=== PATIENT | female | born 1985 | race Two or more races ===

== ENCOUNTER 2017-02-17 21:26 | Outpatient (CLI) | payer OTHER ==
[2017-02-17 22:18] LABS: APPEARANCE,URINE SLIGHTLY-CLOUDY; BILIRUBIN,URINE NEGATIVE (NEGATIVE); GLUCOSE, URINE 50 mg/dL (NEGATIVE); KETONES,URINE TRACE mg/dL (NEGATIVE); LEUKOCYTE ESTERASE,URINE TRACE (NEGATIVE); NITRITE,URINE NEGATIVE (NEGATIVE); PROTEIN,URINE NEGATIVE (NEGATIVE); URINE SPECIFIC GRAVITY 1.029; UROBILINOGEN,URINE NEGATIVE mg/dL (<2.0)
[2017-02-17] MEDS ORDERED: RINGERS SOLUTION,LACTATED 1,000 ML IV PRN (22:38)
[2017-02-17 22:42] LABS: URINE BARBITURATES SCREEN NEGATIVE; URINE METHADONE SCREEN NEGATIVE; URINE OPIATES LOW NEGATIVE; URINE PHENCYCLIDINE SCREEN NEGATIVE
[2017-02-18] MEDS ORDERED: TERBUTALINE SULFATE INJ/PF 1 MG/1 ML SDV ONE (03:12)
[2017-02-18] MEDS ORDERED: TERBUTALINE SULFATE INJ/PF 1 MG/1 ML SDV SUBCUT ONE (03:52)
--- NOTE | 2017-02-18 05:39 | Non Stress Test Report ---
Non Stress Test Datetime Report Generated by CPN: 02/18/2017 05:38 DEMOGRAPHIC EGA NST: 38.2 INDICATION Indication for Study: Ordered by Provider VITAL SIGNS Temperature - NST: 98.3 Pulse - NST: 97 RESP - NST: 14 NBPSYS NST: 96 NBPDIA NST: 54 MONITORING Monitor Explained: Monitor Explained; Test Explained; Patient Verbalized Understanding Time on Monitor: 02/18/2017 03:02 Time off Monitor: 02/18/2017 05:05 NST Duration: 123 NST INTERVENTIONS NST Interventions: IV Fluids Physician Notified NST: Dr Matos BABY A: [id number] BABY A Movement : Present Contraction Frequency : irreg FHR Baseline : 145 Accelerations : 15X15 Decelerations : None Variability : Moderate 6-25bpm NST Review: Meets Criteria for Reactive NST NST Review and Verified By : Navin Pineda RN NST Results: Reactive NST REPORT Report Trigger: Send Report
== END 2017-02-18 05:31 | disposition home or self-care (01) ==
LOC: LC 21:26
PROVIDERS: ATTEND Student in an Organized Health Care Education/Training Program
PROC: 4A1HXCZ Monitoring of Products of Conception, Cardiac Rate, External Approach (ICD-10-PCS; principal; 2017-02-17)
DX: O47.1 False labor at or after 37 completed weeks of gestation (principal); Z3A.38 38 weeks gestation of pregnancy
CPT/HCPCS: 59025; 81005; 80307; J3105

== ENCOUNTER 2017-02-18 17:11 | Inpatient (IN) | payer OTHER ==
[~2017-02-18 17:11] MED LIST: DEXAMETHASONE SOD PHOSPHATE INJ 4 MG/1 ML VIAL ONE; GLYCOPYRROLATE INJ 0.4 MG/2 ML VIAL ONE; KETOROLAC TROMETHAMINE 60 MG/2 ML SDV ONE; METOCLOPRAMIDE HCL INJ/PF 10 MG/2 ML SDV ONE; ONDANSETRON HCL INJ/PF 4 MG/2 ML SDV ONE; PHENYLEPHRINE HCL INJ/PF 10 MG/1 ML SDV ONE
[2017-02-18 18:01] LABS: APPEARANCE,URINE SLIGHTLY-CLOUDY; BILIRUBIN,URINE NEGATIVE (NEGATIVE); GLUCOSE, URINE NEGATIVE (NEGATIVE); KETONES,URINE 20 mg/dL (NEGATIVE); LEUKOCYTE ESTERASE,URINE NEGATIVE (NEGATIVE); NITRITE,URINE NEGATIVE (NEGATIVE); PROTEIN,URINE NEGATIVE (NEGATIVE); URINE SPECIFIC GRAVITY 1.008; UROBILINOGEN,URINE NEGATIVE mg/dL (<2.0)
[2017-02-18 18:16] LABS: URINE BARBITURATES SCREEN NEGATIVE; URINE METHADONE SCREEN NEGATIVE; URINE OPIATES LOW NEGATIVE; URINE PHENCYCLIDINE SCREEN NEGATIVE
[2017-02-18 18:32] LABS: ABSOLUTE BASOPHILS # (AUTO) 0.1 10^3/uL (0.0-0.2); ABSOLUTE LYMPHOCYTES (AUTO) 1.5 10^3/uL (0.5-4.7); ABSOLUTE MONOCYTES (AUTO) 0.8 10^3/uL (0.1-1.4); BASOPHILS % (AUTO) 0.4 % (0-2); EOSINOPHILS % (AUTO) 0.1 % (0-6); HEMOGLOBIN 11.8 g/dL (12.0-15.5); HGB HCT DIFFERENCE -0.6; MEAN CORPUSCULAR HEMOGLOBIN 29.4 pg (27.0-33.4); MEAN CORPUSCULAR HGB CONC 32.9 g/dL (32.0-36.0); MEAN CORPUSCULAR VOLUME 89 fl (80-97); RED BLOOD COUNT 4.03 10^6/uL (3.72-5.28); RED CELL DISTRIBUTION WIDTH 14.1 % (11.5-14.0); SEGMENTED NEUTROPHILS % (AUTO) 84.5 % (42-78); WHITE BLOOD COUNT 15.4 10^3/uL (4.0-10.5)
[2017-02-18] MEDS ORDERED: OXYTOCIN/NORMAL SALINE 20 UNIT/1,000 ML RTUINJ ONE (18:38)
[2017-02-18] MEDS ORDERED: OXYTOCIN 10 UNIT/ML VIAL ONE (18:38)
[2017-02-18] MEDS ORDERED: FENTANYL CITRATE INJ/PF 100 MCG/2 ML AMPUL ONE (18:39)
[2017-02-18] MEDS ORDERED: EPHEDRINE SULFATE INJ 50 MG/1 ML AMPULE ONE (18:39)
[2017-02-18] MEDS ORDERED: MIDAZOLAM 2 MG/2 ML INJ ONE (18:39)
[2017-02-18] MEDS ORDERED: CITRIC ACID/SODIUM CITRATE ORAL SOLN 15 ML UDCUP ONE (18:40)
[2017-02-18] MEDS ORDERED: CEFAZOLIN 2 GM/D5W RTU 2 GM/50 ML RTUPB IV ONE (18:40)
[2017-02-18] MEDS ORDERED: DIPHENHYDRAMINE HCL 50 MG/ML VIAL IV PRN (18:54)
[2017-02-18] MEDS ORDERED: FENTANYL CITRATE INJ/PF 100 MCG/2 ML AMPUL IV PRN ×3 (18:54)
[2017-02-18] MEDS ORDERED: PROMETHAZINE HCL INJ 25 MG/1 ML VIAL IV PRN ×4 (18:54→22:57)
[2017-02-18] MEDS ORDERED: ONDANSETRON HCL INJ/PF 4 MG/2 ML SDV IV PRN ×2 (18:54→20:38)
[2017-02-18] MEDS ORDERED: MEPERIDINE HCL/PF INJ 25 MG/1 ML DISP.SYRIN IV PRN (18:54)
[2017-02-18] MEDS ORDERED: ACETAMINOPHEN 100 ML IV ONE (19:57)
--- NOTE | 2017-02-18 20:09 | Operative Report ---
Operative Report DATE OF SURGERY: 02/18/17 Operative Report: Repeat low transverse cervical section PREOPERATIVE DIAGNOSIS: Intrauterine at 38 weeks in labor with history of and desire for repeat POSTOPERATIVE DIAGNOSIS: Status post repeat low transverse at term OPERATION: Repeat low transverse cervical section SURGEON: BHASKAR FLORES ANESTHESIA: Spinal TISSUE REMOVED OR ALTERED: Placenta ESTIMATED BLOOD LOSS: 500 cc INTRAOPERATIVE FINDINGS: Damon male infant in vertex presentation with clear amniotic fluid. Weight 2335 g or 5 lbs. 2 oz. Apgars 8 at 1 minute and 9 at 5 minutes. Normal uterus, tubes, and ovaries. PROCEDURE: After discussing risks benefits and alternatives of the procedure and obtaining informed consent the patient was taken to the operating room where spinal anesthesia was achieved. She was positioned in the dorsal supine position with a leftward tilt. She was then prepped and draped in the usual standard fashion. Pfannenstiel skin incision was made and the abdomen was entered in layers in the usual standard fashion. The C safe knife was used to make a low- transverse hysterotomy incision. The surgeon's hand was entered into the hysterotomy incision and the vertex elevated and delivered. Shoulders and body were delivered easily thereafter. Nasopharynx and oropharynx were bulb suctioned. Cord was clamped and cut. The was handed to pediatrics who were present. The placenta was manually extracted. The uterus was cleared of all clots and debris. The hysterotomy incision was closed with 0 Monocryl in a running locked fashion. Excellent hemostasis was observed. The uterus tubes and ovaries were returned to the peritoneal cavity. The cavity was irrigated with saline and hemostasis was again assured. A layer of Interceed was placed in an inverted T fashion over the lower uterine segment and anterior aspect of the uterus. Peritoneum was closed with 2-0 Vicryl in a pursestring fashion. Rectus muscles were loosely reapproximated with interrupted stitches of 2-0 Vicryl. The subfascial space was inspected and noted to be hemostatic. The fascia was closed with #1 Vicryl. The subcutaneous tissues were irrigated and hemostasis assured. The skin was closed in a subcuticular fashion with 4-0 Monocryl. An OpSite dressing was applied. The patient was taken to recovery in stable condition. All sponge needle lap and instrument counts were correct correct.
[2017-02-18] MEDS ORDERED: ACETAMINOPHEN 325 MG TABLET PO PRN (20:34)
[2017-02-18] MEDS ORDERED: SIMETHICONE 80 MG TAB.CHEW PO PRN (20:34)
[2017-02-18] MEDS ORDERED: DIPH/PERTUSS(ACELL)/TETANUS VAC/PF 0.5 ML SYR (>=10YO) IM PRN (20:34)
[2017-02-18] MEDS ORDERED: MEASLES,MUMPS&RUBELLA VACC/PF 0.5 ML VIAL SUBCUT PRN (20:34)
[2017-02-18] MEDS ORDERED: OXYTOCIN/NORMAL SALINE 1,000 ML IV PRN (20:34)
[2017-02-18] MEDS ORDERED: RINGERS SOLUTION,LACTATED 1,000 ML IV PRN (20:34)
[2017-02-18] MEDS ORDERED: OXYCODONE-ACETAMINOPHEN 5-325 MG TABLET PO PRN ×2 (20:34)
[2017-02-18] MEDS ORDERED: HYDROMORPHONE HCL INJ/PF 2 MG/ML AMPULE IV PRN (20:34)
[2017-02-18] MEDS: MORPHINE SULFATE 10 MG/ML INJ IV PRN ×2 (21:12→21:52)
[2017-02-18] MEDS ORDERED: MORPHINE SULFATE 10 MG/ML INJ ONE (21:12)
--- NOTE | 2017-02-18 22:51 | Admission Physical ---
Datetime Report Generated by CPN: 02/18/2017 22:51 CURRENT ADMISSION Hx Assessment: The History has been Reviewed and is Current Chief Complaint: Uterine Contractions Admit Plan: Initiate Section Protocol ALLERGIES Medication Allergies: No Medication Allergies: nickel/MO/IRRITATION, RED (02/17/2017) Medication Allergies: nickel/MO/IRRITATION, RED (09/27/2014) Latex: No Latex Allergies Food Allergies: none Environmental Allergies: none OBSTETRICAL HISTORY EDC: 03/02/2017 00:00 : 2 Para: 1 Term: 1 : 0 SAB: 0 IAB: 0 Ectopic: 0 Livin Cesareans: 1 VBACs: 0 Multiple Births: 0 Gestational Diabetes: No Rh Sensitization: No Incompetent Cervix: No DEVEN: No Infertility: No ART Treatment: No Uterine Anomaly: No IUGR: Yes Hx Previous C/S: Yes Macrosomia: No Hx Loss/Stillborn: No PIH: No Hx : No Placenta Previa/Abruption: No Depression/PP Depression: No PTL/PROM: No Post Hemorrhage: No Current Procedures: Ultrasound; NST Obstetrical History Comments: G1: 2012 Female C/S due to distress G2: Current SEE RECORDS Alcohol: No Marijuana : No Cocaine: No Other Illicit Drugs: No Cigarettes: Never Smoker. [id number] MEDICAL HISTORY Diabetes: No Blood Transfusion: No Pulmonary Disease (Asthma, TB): No Breast Disease: No Hypertension: No Key Account Coordinator Surgery: No Heart Disease: No Hosp/Surgery: Yes Autoimmune Disorder: No Anesthetic Complications: No Kidney Disease: No Abnormal Pap Smear: No Neuro/Epilepsy: No Psychiatric Disorders: No Other Medical Diseases: No Hepatitis/Liver Disease: No Significant Family History: No Varicosities/Phlebitis: No Trauma/Violence : No Thyroid Dysfunction: Yes Medical History Comments: borderline hypothyroidism, C/S, lumpectomy in R breast 2006, lap ovarian cyst removal 12/2015 INFECTIOUS HISTORY Gonorrhea: No Genital Herpes: No Chlamydia: No Tuberculosis: No Syphilis: No Hepatitis: No HIV/AIDS Exposure: No Rash or Viral Illness: No HPV: No PHYSICAL EXAM General: Normal HEENT: Normal Neurologic: Normal Thyroid: Normal Heart: Normal Lungs: Normal Breast: Normal Back: Normal Abdomen: Normal Genitourinary Exam: Normal Extremities: Normal DTRs: Normal Pelvic Type: Adequate Physical Exam Comments: Pt with painful ctxs and cervical change since visit last night FETUS A EGA: 38.2 Monitoring: External US Admit Comment: Discussed r/b/a of repeat c/s -pt declines btl PLANS FOR LABOR AND DELIVERY Labor and Delivery: None Pain Management: Spinal Other Pain Management Plans: Repeat C/S Feeding Preference: Breast Benefit of Breast Feed Discussed: Yes Circumcision: Yes INFORMED CONSENT Signature: with User ID: [email or web address]
[2017-02-18] MEDS ORDERED: NA PHOS,M-B/NA PHOS,DI-BA (ADULT) 133 ML ENEMA PR PRN (22:57)
[2017-02-18] MEDS ORDERED: MAGNESIUM HYDROXIDE SUSP 30 ML UDCUP PO PRN (22:57)
[2017-02-18] MEDS ORDERED: PSEUDOEPHEDRINE HCL 30 MG TABLET PO PRN (22:57)
[2017-02-18] MEDS ORDERED: DIPHENHYDRAMINE HCL 25 MG CAPSULE PO PRN (22:57)
[2017-02-18] MEDS ORDERED: PROMETHAZINE HCL 25 MG SUPP.RECT PR PRN (22:57)
[2017-02-18] MEDS ORDERED: ACETAMINOPHEN 650 MG SUPP.RECT PR PRN (22:57)
[2017-02-18] MEDS ORDERED: PROMETHAZINE HCL 25 MG TABLET PO PRN (22:57)
[2017-02-18] MEDS ORDERED: GLYCERIN/WITCH HAZEL LEAF 1 EACH MED..PAD TP PRN (22:57)
[2017-02-19] MEDS ORDERED: OXYCODONE-ACETAMINOPHEN 5-325 MG TABLET PO PRN (00:06)
[2017-02-19] MEDS: OXYCODONE-ACETAMINOPHEN 5-325 MG TABLET PO PRN ×4 (00:14→23:43)
[2017-02-19 06:29] LABS: HEMATOCRIT 32.7 % (36.0-47.0); HEMOGLOBIN 10.8 g/dL (12.0-15.5); HGB HCT DIFFERENCE -0.3; MEAN CORPUSCULAR HEMOGLOBIN 29.4 pg (27.0-33.4); MEAN CORPUSCULAR HGB CONC 32.9 g/dL (32.0-36.0); MEAN CORPUSCULAR VOLUME 89 fl (80-97); RED BLOOD COUNT 3.66 10^6/uL (3.72-5.28); WHITE BLOOD COUNT 17.8 10^3/uL (4.0-10.5)
--- NOTE | 2017-02-19 10:03 | PDOC PROGRESS REPORT ---
Subjective-OB Subjective: Post Delivery Day: 31 year old. Denies any needs at this time Doing well, sitting up in bed, eating well, + Gas, OOB, hsb at BS, pain under control Physical Exam (OB) Vital Signs: Temp Pulse Resp BP Pulse Ox 98.1 F 57 L 15 114/69 98 02/19/17 08:03 02/19/17 08:03 02/19/17 08:03 02/19/17 08:03 02/19/17 08:03 Intake & Output 02/18/17 02/19/17 02/20/17 06:59 06:59 06:59 Intake Total 150 Output Total 900 400 Balance -900 -250 Weight 58.7 kg - Dressing Removed: No Incision: Dressing Closure Type: OPSITE - Lochia Lochia Amount: Small 10-25 ml Lochia Color: Rubra/Red - Abdomen Description: Soft, Round Hernia Present: No Fundal Description: Firm, Midline Fundal Height: u/u - u/2 Objective-Diagnostic Laboratory: 02/19/17 06:15 02/18/17 02/18/17 02/18/17 17:27 18:18 18:18 WBC 15.4 H RBC 4.03 Hgb 11.8 L Hct 36.0 MCV 89 MCH 29.4 MCHC 32.9 RDW 14.1 H Plt Count 197 Seg Neutrophils % 84.5 H Lymphocytes % 10.0 L Monocytes % 5.0 Eosinophils % 0.1 Basophils % 0.4 Absolute Neutrophils 13.0 H Absolute Lymphocytes 1.5 Absolute Monocytes 0.8 Absolute Eosinophils 0.0 Absolute Basophils 0.1 Urine Color YELLOW Urine Appearance SLIGHTLY-CLOUDY Urine pH 7.0 Ur Specific [place] 1.008 Urine Protein NEGATIVE Urine Glucose (UA) NEGATIVE Urine Ketones 20 H Urine Blood LARGE H Urine Nitrite NEGATIVE Ur Leukocyte Esterase NEGATIVE Blood Type AB POSITIVE Antibody Screen NEGATIVE 02/19/17 06:15 WBC 17.8 H RBC 3.66 L Hgb 10.8 L Hct 32.7 L MCV 89 MCH 29.4 MCHC 32.9 RDW 14.0 Plt Count 168 Seg Neutrophils % Lymphocytes % Monocytes % Eosinophils % Basophils % Absolute Neutrophils Absolute Lymphocytes Absolute Monocytes Absolute Eosinophils Absolute Basophils Urine Color Urine Appearance Urine pH Ur Specific [place] Urine Protein Urine Glucose (UA) Urine Ketones Urine Blood Urine Nitrite Ur Leukocyte Esterase Blood Type Antibody Screen Assessment and Plan(PN) - Assessment and Plan (1) Status post repeat low transverse section Is this a current diagnosis for this admission?: Yes - Time Spent with Patient Time with patient: Less than 15 minutes Medications reviewed and adjusted accordingly: Yes - Disposition Anticipated Discharge: Home Within: within 48 hours
[2017-02-19] MEDS: DOCUSATE SODIUM 100 MG CAPSULE PO SCH ×2 (11:15→17:14)
[2017-02-19] MEDS: PRENATAL VITAMIN W-O CA NO5/FE FUMARATE/FA CAPSULE PO SCH (11:16)
[2017-02-19] MEDS: FAMOTIDINE 20 MG TABLET PO SCH ×2 (11:18→21:56)
[2017-02-19] MEDS: CEFAZOLIN 1 GM/D5W RTU 50 ML IV SCH ×2 (12:22→17:13)
[2017-02-20] MEDS: OXYCODONE-ACETAMINOPHEN 5-325 MG TABLET PO PRN (05:16)
[2017-02-20 05:28] VITALS: BP 126/82
[2017-02-20 07:03] LABS: ABSOLUTE EOSINOPHILS # (AUTO) 0.1 10^3/uL (0.0-0.6); ABSOLUTE LYMPHOCYTES (AUTO) 1.9 10^3/uL (0.5-4.7); ABSOLUTE MONOCYTES (AUTO) 0.5 10^3/uL (0.1-1.4); ABSOLUTE NEUT (AUTO) 9.1 10^3/uL (1.7-8.2); BASOPHILS % (AUTO) 0.3 % (0-2); EOSINOPHILS % (AUTO) 0.4 % (0-6); HEMATOCRIT 31.2 % (36.0-47.0); HGB HCT DIFFERENCE -1.2; MEAN CORPUSCULAR HEMOGLOBIN 29.2 pg (27.0-33.4); MEAN CORPUSCULAR HGB CONC 32.2 g/dL (32.0-36.0); MEAN CORPUSCULAR VOLUME 91 fl (80-97); MONOCYTES % (AUTO) 4.7 % (3-13); RED BLOOD COUNT 3.44 10^6/uL (3.72-5.28); RED CELL DISTRIBUTION WIDTH 14.6 % (11.5-14.0); SEGMENTED NEUTROPHILS % (AUTO) 78.6 % (42-78); WHITE BLOOD COUNT 11.6 10^3/uL (4.0-10.5)
--- NOTE | 2017-02-20 10:12 | PDOC PROGRESS REPORT ---
Subjective-OB Subjective: Post Delivery Day: 31 year old. Denies any needs at this time Doing well, no c/o, OOB in room and halls, not passing gas, feels like she needs to, feels gas in abd, scant bleeding, pain under control Physical Exam (OB) Vital Signs: Temp Pulse Resp BP Pulse Ox 98.2 F 75 16 126/82 H 100 02/20/17 04:49 02/20/17 04:49 02/20/17 04:49 02/20/17 04:49 02/20/17 04:49 Intake & Output 02/19/17 02/20/17 02/21/17 06:59 06:59 06:59 Intake Total 1325 Output Total 900 1025 Balance -900 300 Weight 58.7 kg - Dressing Removed: No Incision: Dressing Closure Type: op site - Lochia Lochia Amount: Scant < 10 ml Lochia Color: Rubra/Red - Abdomen Description: Soft, Round Hernia Present: No Fundal Description: Firm, Midline Fundal Height: u/u - u/2 Objective-Diagnostic Laboratory: 02/20/17 06:49 02/20/17 06:49 WBC 11.6 H RBC 3.44 L Hgb 10.0 L Hct 31.2 L MCV 91 MCH 29.2 MCHC 32.2 RDW 14.6 H Plt Count 194 Seg Neutrophils % 78.6 H Lymphocytes % 16.0 Monocytes % 4.7 Eosinophils % 0.4 Basophils % 0.3 Absolute Neutrophils 9.1 H Absolute Lymphocytes 1.9 Absolute Monocytes 0.5 Absolute Eosinophils 0.1 Absolute Basophils 0.0 Assessment and Plan(PN) - Assessment and Plan (1) Status post repeat low transverse section Is this a current diagnosis for this admission?: Yes - Time Spent with Patient Time with patient: Less than 15 minutes Medications reviewed and adjusted accordingly: Yes - Disposition Anticipated Discharge: Home Within: Other - home today
--- NOTE | 2017-02-20 10:15 | PDOC DISCHARGE SUMMARY ---
Final Diagnosis Discharge Date: 02/20/17 - Final Diagnosis (1) Status post repeat low transverse section Is this a current diagnosis for this admission?: Yes Discharge Data - Discharge Medication Home Medications: Multivitamin [Multi-Vitamin Daily] 1 each PO DAILY 09/27/14 Ferrous Sulfate [Iron] 325 mg PO BID 02/17/17 Oxycodone HCl/Acetaminophen [Percocet 5-325 mg Tablet] 1 tab PO Q4HP PRN #30 tablet 02/20/17 Gestational Age: 39 Reason(s) for Admission: Ceasarean Section-Repeat, Other - IUGR Procedures: NST, Ultrasound Intrapartum Procedure(s): : Low Cervical, Transverse - [place] Data Baby 1 Male Home with Mother: Yes Complications: No - Diagnosis Test Laboratory: Temp Pulse Resp BP Pulse Ox 98.2 F 75 16 126/82 H 100 02/20/17 04:49 02/20/17 04:49 02/20/17 04:49 02/20/17 04:49 02/20/17 04:49 02/18/17 02/18/17 02/19/17 17:27 18:18 06:15 RBC 4.03 3.66 L Hgb 11.8 L 10.8 L Hct 36.0 32.7 L Urine Opiates Screen NEGATIVE 02/20/17 06:49 RBC 3.44 L Hgb 10.0 L Hct 31.2 L Urine Opiates Screen - Discharge information/Instructions Discharge Activity: Activity As Tolerated, No Lifting Over 10 Pounds, No Lifting /Push/Pulling, Pelvic Rest Discharge Diet: As Tolerated Disposition: HOME, SELF-CARE Follow up with: [facility] in: 1, Weeks
[2017-02-20] MEDS: PRENATAL VITAMIN W-O CA NO5/FE FUMARATE/FA CAPSULE PO SCH (10:18)
[2017-02-20] MEDS: FAMOTIDINE 20 MG TABLET PO SCH (10:18)
[2017-02-20] MEDS: DOCUSATE SODIUM 100 MG CAPSULE PO SCH (10:19)
--- NOTE | 2017-03-06 06:03 | PDOC DELIVERY SUMMARY ---
Delivery Summary - Maternal Hx : II Hx Para: I Hx # Term Pregnancies: 1 Gestational Age: 39 - Delivery Presentation: Vertex Heart Rate Monitoring: Done Pre-Operatively - Medications Type of Anesthesia:: Spinal - Infant Assess and Care Baby 1 Male at 1 minute: 8 at 5 minutes: 9 - Delivery Personnel MD: BHASKAR FLORES
== END 2017-02-20 13:34 | disposition home or self-care (01) | DRG 765 ==
LOC: LC 17:11 → LR 18:01 → 2S 22:00
PROVIDERS: ADMIT Specialist; ATTEND Specialist
PROC: 10D00Z1 Extraction of Products of Conception, Low, Open Approach (ICD-10-PCS; principal; 2017-02-18)
PROC: 4A1HXCZ Monitoring of Products of Conception, Cardiac Rate, External Approach (ICD-10-PCS; 2017-02-18)
DX: O34.211 Maternal care for low transverse scar from previous cesarean delivery (principal); O36.5930 Maternal care for other known or suspected poor fetal growth, third trimester, not applicable or unspecified; Z3A.39 39 weeks gestation of pregnancy; Z37.0 Single live birth
CPT/HCPCS: 1961; 36415; 59025; 80307; 81005; 85025; 85027; 86592; 86850; 86900; 86901; 88307; 94760; 94799; C1765; J0131; J0690; J1100; J1170; J1885; J2250; J2270; J2370; J2405; J2590; J2765; J3010; J3490; J7120

== ENCOUNTER → 2020-06-26 | Outpatient (CLI) | payer OTHER ==
--- NOTE | 2020-06-26 15:33 | RADIOLOGY REPORT (SQ) ---
EXAM DESCRIPTION: FOOT RIGHT 2 VIEWS IMAGES COMPLETED DATE/TIME: 06/26/2020 3:23 pm REASON FOR STUDY: M79.671 PAIN IN RIGHT FOOT M79.671 PAIN IN RIGHT FOOT COMPARISON: None. NUMBER OF VIEWS: Three views. TECHNIQUE: AP, lateral and oblique without weight bearing radiographic images acquired of the right foot. LIMITATIONS: None. FINDINGS: MINERALIZATION: Normal. BONES: No acute fracture or dislocation. No worrisome bone lesions. No significant osteophytes. JOINTS: No erosions. No odalis-articular osteopenia. No chondrocalcinosis. SOFT TISSUES: No swelling. No calcifications. OTHER: No other significant finding. IMPRESSION: NEGATIVE STUDY OF THE RIGHT FOOT. NO EXPLANATION FOR PAIN. TECHNICAL DOCUMENTATION: JOB ID: [id number] 2010 [employer]- All Rights Reserved Reading location - IP/workstation name: [email or web address]
== END ==
LOC: RAD 15:12
PROVIDERS: ATTEND Family Medicine
DX: M79.671 Pain in right foot (principal)